=== PATIENT | female | born 1990 | race Caucasian/White ===

== ENCOUNTER 2017-08-24 06:18 | Emergency (ER) | payer OTHER ==
[2017-08-24 06:35] VITALS: BP 134/82; PULSE 70; TEMP 97.6; BMI 23.3
[2017-08-24] MEDS ORDERED: ACETAMINOPHEN 1000 MG/100 ML VIAL (NON FORMULARY) IVPB ONE (06:59)
[2017-08-24] MEDS ORDERED: SODIUM CHLORIDE 1,000 ML IV STA (06:59)
[2017-08-24] MEDS ORDERED: METOCLOPRAMIDE HCL INJECTION 10 MG/2 ML VIAL IVPUSH ONE (07:00)
--- NOTE | 2017-08-24 07:12 | PDOC ---
History of Present Illness - General Chief Complaint: Migraine Headache Stated Complaint: MIGRAINE Time Seen by Provider: 08/24/17 06:48 - History of Present Illness Initial Comments: 08/24/17 08:02 The patient is a 26 year old female with a history of migraines who presents for evaluation of headache and nausea. The patient reports a 1 day history of frontal headache that began gradually and intermittently increases in severity. She states that she took 1 topiramate which she is suppose to take twice a day , but has only been using as needed for her headaches. She reported continued headache this morning prompting her presentation to the ED for evaluation. She states that her symptoms are similar to her normal migraine headaches and are associated with photophobia, phonophobia, and nausea. She otherwise denies fevers, chills, neck stiffness, SOB, chest pain, vomiting, abdominal pain, or changes with urination or bowel movements. Past History - Past Medical History Allergies/Adverse Reactions: Allergies Allergy/AdvReac Type Severity Reaction Status Date / Time No Known Allergies Allergy Verified 08/24/17 06:20 Home Medications: Ambulatory Orders Topiramate [Topamax] 25 mg PO BID 08/24/17 Asthma: No Cancer: No Cardiac Disorders: No COPD: No Diabetes: No HTN: No Psychiatric Problems: Yes (anxiety) Seizures: Yes ("old") Thyroid Disease: No Other medical history: migraines - Suicide/Smoking/Psychosocial Hx Smoking History: Never smoked Have you smoked in the past 12 months: No Hx Alcohol Use: No Drug/Substance Use Hx: No Hx Substance Use Treatment: No Review of Systems - Review of Systems Comments:: 08/24/17 08:06 Constitutional: No fevers, chills, fatigue, malaise HEENT: No Rhinorrhea, nasal congestion, visual changes Cardiovascular: No chest pain, syncope, palpitations, lightheadedness Respiratory: No Cough, SOB, Hemoptysis, Gastrointestinal: Nausea. No Abdominal pain, Vomiting, Constipation, Diarrhea, Melena Genitourinary: No Dysuria, Frequency, Urgency, Hesitancy, Hematuria, Flank pain Musculoskeletal: No Myalgia, arthralgia Skin: No rashes, itching, bruising, pallor Neurologic: Headache, Photophobia, Phonophobia. No Dizziness, Numbness, Weakness , or Tingling Psychiatric: No Hallucinations. No SI or HI *Physical Exam - Vital Signs Last Vital Signs Temp Pulse Resp BP Pulse Ox 97.6 F 70 18 134/82 100 08/24/17 06:20 08/24/17 06:20 08/24/17 06:20 08/24/17 06:20 08/24/17 06:20 - Physical Exam Comments: 08/24/17 08:07 General Appearance: Nourished. No Apparent Distress HEENT: EOMI, AYAH. No Pharyngeal Erythema, Tonsillar Exudate, Tonsillar Erythema Neck: No Cervical Lymphadenopathy Respiratory/Chest: Lungs Clear, Normal Breath Sounds. No Crackles, Rales, Rhonchi, Wheezing Cardiovascular: Regular Rhythm, Regular Rate. No Murmur, Gallops, Rubs Gastrointestinal/Abdominal: Normal Bowel Sounds, Soft. No Guarding, Rebound, Tenderness Musculoskeletal: No CVA Tenderness Extremity: Normal Capillary Refill Integumentary: Normal Color, Dry, Warm Neurologic: screening tech II-XII NML intact, Fully Oriented, Alert, Normal Mood/Affect, Normal Response, Motor Strength 5/5. Normal Finger to Nose and Heel to [place] ED Treatment Course - LABORATORY CBC & Chemistry Diagram: 08/24/17 07:07 08/24/17 07:07 Medical Decision Making - Medical Decision Making 08/24/17 08:07 The patient is a 26 year old female with a history of migraines who presents for evaluation of headache and nausea. Given the patient's similar symptoms to her normal migraines and normal physical exam, it is likely her symptoms are due to her normal migraines. She does not demonstrate any red flag signs on exam here in the ED. We will obtain a cbc, cmp, ua, urine preg to evaluate further and in the meantime treat the patient with iv fluids, iv tylenol, benadryl, and reglan. We will continue to monitor and reassess. 08/24/17 09:48 CBC, cmp, ua, urine preg are unremarkable. The patient reports significant improvement in her symptoms at this time. We are comfortable discharging the patient home with neurology follow up. We discussed the results and the plan with the patient who voiced understanding and is agreeable with the plan. *DC/Admit/Observation/Transfer Diagnosis at time of Disposition: Migraine Qualifiers: Migraine type: unspecified Status migrainosus presence: without status migrainosus Intractability: not intractable Qualified Code(s): G43.909 - Migraine, unspecified, not intractable, without status migrainosus - Discharge Dispostion Disposition: HOME Condition at time of disposition: Good Admit: No - Referrals Referrals: Verenice Florence MD [Primary Care Provider] - Ta Groves MD [Staff Physician] - - Patient Instructions Printed Discharge Instructions: DI for Migraine Additional Instructions: Please return to the ER if you experience concerning or worsening symptoms including worsening headache, vomiting, fevers, or weakness in your extremities. Your lab results were normal here in the ER and your test was negative. Your symptoms are likely due to a migraine headache. Please call to schedule a follow up appointment with our neurologist (Dr. Groves) within 2-3 days to discuss further management of your symptoms. - Post Discharge Activity
--- NOTE | 2017-08-24 07:17 | PDOC ---
Attending Attestation - Resident Resident Name: Jaxson Gamez - ED Attending Attestation I have performed the following: I have examined & evaluated the patient, The case was reviewed & discussed with the resident, I agree w/resident's findings & plan, Exceptions are as noted - HPI HPI: 26 yo F history migraines p/w headache since yesterday. Similar to prior headaches, associated with photophobia, intermittent numbness to limbs. No vomiting, but complains of nausea. She states she took topamax this morning without relief. Her headache was preceded by L side pain. - Physicial Exam PE: GENERAL: Awake, alert, and fully oriented, in no acute distress HEAD: No signs of trauma EYES: PERRLA, EOMI, sclera anicteric, conjunctiva clear ENT: Auricles normal inspection, hearing grossly normal, nares patent, oropharynx clear without exudates. Moist mucosa NECK: Normal ROM, supple, no lymphadenopathy, JVD, or masses LUNGS: Breath sounds equal, clear to auscultation bilaterally. No wheezes, and no crackles HEART: Regular rate and rhythm, normal S1 and S2, no murmurs, rubs or gallops ABDOMEN: Soft, nontender, normoactive bowel sounds. No guarding, no rebound. No masses EXTREMITIES: Normal range of motion, no edema. No clubbing or cyanosis. No cords, erythema, or tenderness NEUROLOGICAL: Cranial nerves II through XII grossly intact. Normal speech, normal gait SKIN: Warm, Dry, normal turgor, no rashes or lesions noted. - Medical Decision Making Counseled patient regarding taking topamax. She was taking it as needed, however , for migraines it is meant to be used consistently to prevent. She has not taken it for months, has not needed it. I counseled her that she may need a change in regimen if her headaches are not as frequent anymore. Counseled her not to use it prn as it is not designed to be used that way. Will send UA and serum B-HCG. If both neg, will DC home.
[2017-08-24 07:31] LABS: BASO % 0.5 % (0-2.0); EOS % 1.5 % (0-4.5); HEMATOCRIT 37.3 % (32.4-45.2); HEMOGLOBIN 12.9 GM/dL (10.7-15.3); MCH 33.8 pg (25.7-33.7); MCHC 34.7 g/dl (32.0-36.0); MEAN CELL VOLUME 97.3 fl (80-96); MEAN PLT VOLUME 8.6 fl (7.5-11.1); PLATELET COUNT 235 K/MM3 (134-434); RBC 3.83 M/mm3 (3.60-5.2); RDW 12.9 % (11.6-15.6); WHITE BLOOD COUNT 6.2 K/mm3 (4.0-10.0)
[2017-08-24 07:51] LABS: ALBUMIN 3.7 g/dl (3.4-5.0); ALK PHOS 54 U/L (45-117); ANION GAP 8 (8-16); BILIRUBIN,TOTAL 0.4 mg/dL (0.2-1.0); BLOOD UREA NITROGEN 21 mg/dL (7-18); CALCIUM 8.4 mg/dL (8.5-10.1); CHLORIDE 107 mmol/L (98-107); CO2 24 mmol/L (21-32); CREATININE 0.7 mg/dL (0.55-1.02); GLUCOSE,RANDOM 84 mg/dL (74-106); SGPT/ALT 12 U/L (12-78); SODIUM 139 mmol/L (136-145); TOT PROT 6.9 g/dl (6.4-8.2)
[2017-08-24 08:18] LABS: POTASSIUM 4.1 mmol/L (3.5-5.1); SGOT/AST 17 U/L (15-37)
[2017-08-24 08:41] LABS: URINE APPEARANCE CLOUDY; URINE BILIRUBIN NEGATIVE (NEGATIVE); URINE BLOOD NEGATIVE (NEGATIVE); URINE COLOR YELLOW; URINE GLUCOSE (UA) NEGATIVE (NEGATIVE); URINE KETONE NEGATIVE (NEGATIVE); URINE LEUK ESTERASE NEGATIVE (NEGATIVE); URINE NITRITE NEGATIVE (NEGATIVE); URINE PROTEIN NEGATIVE (NEGATIVE); URINE UROBILINOGEN NEGATIVE mg/dL (0.2-1.0)
[2017-08-24 08:51] LABS: HCG,QUALITATIVE URINE NEGATIVE
== END 2017-08-24 09:56 | disposition home or self-care (01) ==
LOC: JER 06:18
PROC: 3E0333Z Introduction of Anti-inflammatory into Peripheral Vein, Percutaneous Approach (ICD-10-PCS; principal; 2017-08-24)
PROC: 3E033GC Introduction of Other Therapeutic Substance into Peripheral Vein, Percutaneous Approach (ICD-10-PCS; 2017-08-24)
PROC: 3E033GC Introduction of Other Therapeutic Substance into Peripheral Vein, Percutaneous Approach (ICD-10-PCS; 2017-08-24)
DX: G43.909 Migraine, unspecified, not intractable, without status migrainosus (principal); F41.9 Anxiety disorder, unspecified; Z86.69 Personal history of other diseases of the nervous system and sense organs
CPT/HCPCS: 36415; 80053; 81003; 84703; 85025; 96374; 96375; 99283-25

== ENCOUNTER 2020-12-02 14:20 | Emergency (ER) | payer OTHER ==
[2020-12-02 14:39] VITALS: BP 119/98; PULSE 72; BMI 23.6
== END 2020-12-02 17:14 | disposition home or self-care (01) ==
LOC: JERFT 14:20
DX: Z3A.08 8 weeks gestation of pregnancy (principal)
CPT/HCPCS: 99283-25

== ENCOUNTER 2021-11-11 05:55 | Inpatient (IN) | payer OTHER ==
[2021-11-11] MEDS ORDERED: ELECTROLYTE-148 SOLN 500 ML IV ONE (06:10)
[2021-11-11] MEDS ORDERED: CITRIC ACID/SODIUM CITRATE 30 ML UNIT-DOSE CUP PO ONE (06:10)
[2021-11-11 06:33] VITALS: BMI 32.9
[2021-11-11] MEDS ORDERED: ELECTROLYTE-148 SOLN 1,000 ML IV SCH ×2 (06:40→08:30)
[2021-11-11] MEDS ORDERED: ONDANSETRON 4 MG/2 ML VIAL IVPUSH PRN (07:57)
[2021-11-11] MEDS ORDERED: morphine SULFATE/PF 1 MG/2 ML (2cc Syringe - QUVA) ONE (08:05)
[2021-11-11] MEDS ORDERED: PHENYLEPHRINE HCL 10 MG/1 ML SINGLE DOSE VIAL ONE (08:43)
[2021-11-11] MEDS ORDERED: ceFAZolin SODIUM 1 GM VIAL ONE (08:43)
[2021-11-11] MEDS ORDERED: OXYTOCIN 10 UNITS/ML VIAL ONE (08:45)
[2021-11-11] MEDS ORDERED: ONDANSETRON 4 MG/2 ML VIAL ONE (08:48)
[2021-11-11 09:05] LABS: PHENCYCLIDINE,URINE NEGATIVE (NEGATIVE)
[2021-11-11 09:06] LABS: METHADONE, UR NEGATIVE (NEGATIVE); OPIATES, URI NEGATIVE (NEGATIVE); URINE BARBITURATES NEGATIVE (NEGATIVE); URINE BENZODIAZEPINES NEGATIVE (NEGATIVE)
[2021-11-11 09:09] LABS: COCAINE, UR NEGATIVE (NEGATIVE); URINE AMPHETAMINES NEGATIVE (NEGATIVE)
[2021-11-11] MEDS ORDERED: WITCH HAZEL 50% (TUCKS) 40 PAD/JAR PAD TP PRN (09:17)
[2021-11-11] MEDS ORDERED: METHYLERGONOVINE MALEATE 0.2 MG/1 ML AMP IM PRN (09:17)
[2021-11-11] MEDS ORDERED: ACETAMINOPHEN 325 MG TABLET (FP) PO PRN (09:17)
[2021-11-11 11:48] LABS: SYPHILIS W/ RPR CONF NON-REACTIVE (NONREACTIVE)
[2021-11-11 12:17] LABS: HIV INTERPRETATION NEGATIVE (NEGATIVE)
[2021-11-11] MEDS: FERROUS SO4 325 MG TABLET (FP) PO SCH ×2 (13:06→17:04)
[2021-11-11] MEDS: IBUPROFEN 800 MG/8 ML IJ IVPB PRN ×2 (14:05→22:37)
[2021-11-11] MEDS: OXYTOCIN 20 UNITS in 0.9% NS 20 UNIT/1,000 ML INFUS.BAG IV SCH (17:01)
[2021-11-11] MEDS: PRENATAL VITAMINS W/ FOLIC ACID TABLET (FP) PO SCH (17:03)
[2021-11-11] MEDS: SIMETHICONE 80 MG TAB.CHEW (FP) PO PRN (21:03)
[2021-11-11] MEDS ORDERED: oxyCODONE HCL 5 MG TABLET PO PRN (21:17)
[2021-11-12] MEDS: IBUPROFEN 600 MG TABLET (FP) PO PRN ×4 (06:16→20:00)
[2021-11-12] MEDS: SIMETHICONE 80 MG TAB.CHEW (FP) PO PRN ×4 (06:16→20:02)
[2021-11-12] MEDS: FERROUS SO4 325 MG TABLET (FP) PO SCH ×2 (09:00→18:09)
[2021-11-12] MEDS ORDERED: BISACODYL 10 MG SUPP.RECT RC PRN (09:17)
[2021-11-12] MEDS: PRENATAL VITAMINS W/ FOLIC ACID TABLET (FP) PO SCH (09:20)
[2021-11-12 09:22] LABS: BASO % 0.3 % (0-2.0); EOS % 0.5 % (0-4.5); HEMATOCRIT 28.2 % (32.4-45.2); HEMOGLOBIN 9.6 GM/dL (10.7-15.3); LYMPH % 11.1 % (8-40); MEAN CELL VOLUME 94.3 fl (80-96); MEAN PLT VOLUME 8.3 fl (7.5-11.1); MONO % 8.8 % (3.8-10.2); NEUT % 79.3 % (42.8-82.8); PLATELET COUNT 253 10^3/uL (134-434); RBC 2.99 M/mm3 (3.60-5.2); RDW 13.6 % (11.6-15.6); WHITE BLOOD COUNT 10.3 K/mm3 (4.0-10.0)
[2021-11-12] MEDS ORDERED: DIPHTH,PERTUSS(ACELL),TET 0.5 ML DISP.SYRIN IM ONE (10:00)
[2021-11-13] MEDS: IBUPROFEN 600 MG TABLET (FP) PO PRN ×4 (00:35→19:58)
[2021-11-13] MEDS: SIMETHICONE 80 MG TAB.CHEW (FP) PO PRN ×4 (00:35→19:58)
[2021-11-13] MEDS: FERROUS SO4 325 MG TABLET (FP) PO SCH ×2 (08:56→18:30)
[2021-11-13] MEDS: PRENATAL VITAMINS W/ FOLIC ACID TABLET (FP) PO SCH (09:00)
[2021-11-14] MEDS: SIMETHICONE 80 MG TAB.CHEW (FP) PO PRN (00:52)
[2021-11-14] MEDS: IBUPROFEN 600 MG TABLET (FP) PO PRN ×2 (00:52→08:04)
[2021-11-14] MEDS: OXYTOCIN 20 UNITS in 0.9% NS 20 UNIT/1,000 ML INFUS.BAG IV SCH (07:52)
[2021-11-14] MEDS: PRENATAL VITAMINS W/ FOLIC ACID TABLET (FP) PO SCH ×2 (08:04→09:03)
[2021-11-14] MEDS: FERROUS SO4 325 MG TABLET (FP) PO SCH (08:04)
[2021-11-14 09:04] LABS: BASO % 0.4 % (0-2.0); EOS % 2.2 % (0-4.5); HEMATOCRIT 27.9 % (32.4-45.2); HEMOGLOBIN 9.5 GM/dL (10.7-15.3); LYMPH % 20.7 % (8-40); MCH 32.2 pg (25.7-33.7); MCHC 33.9 g/dl (32.0-36.0); MEAN CELL VOLUME 94.9 fl (80-96); MEAN PLT VOLUME 8.2 fl (7.5-11.1); MONO % 10.2 % (3.8-10.2); NEUT % 66.5 % (42.8-82.8); PLATELET COUNT 276 10^3/uL (134-434); RBC 2.94 M/mm3 (3.60-5.2); RDW 13.8 % (11.6-15.6); WHITE BLOOD COUNT 7.2 K/mm3 (4.0-10.0)
[2021-11-14 09:12] VITALS: BP 128/79; PULSE 75; TEMP 98.8
== END 2021-11-14 11:15 | disposition home or self-care (01) | DRG 540 ==
LOC: JLDR 05:55 → J3W 10:50
PROVIDERS: ADMIT Obstetrics & Gynecology; ATTEND Obstetrics & Gynecology
PROC: 10D00Z1 Extraction of Products of Conception, Low, Open Approach (ICD-10-PCS; principal; 2021-11-11)
DX: O34.211 Maternal care for low transverse scar from previous cesarean delivery (principal); O36.63X0 Maternal care for excessive fetal growth, third trimester, not applicable or unspecified; O99.214 Obesity complicating childbirth; E66.9 Obesity, unspecified; Z3A.39 39 weeks gestation of pregnancy; Z37.0 Single live birth
CPT/HCPCS: 36415; 80053; 80307; 85025; 85610; 86780; 86850; 86900; 86901; 87340; 87389; 88307-TC; 90715; C9803-CS; U0003; U0005

== ENCOUNTER 2023-12-06 14:45 | Emergency (ER) | payer OTHER ==
[2023-12-06 14:58] VITALS: BP 108/64; PULSE 82; RESP 18; TEMP 98; BMI 26.6
[2023-12-06] MEDS ORDERED: ACETAMINOPHEN 500 MG TABLET (FP) ONE (16:16)
[2023-12-06] MEDS ORDERED: IBUPROFEN 400 MG TABLET (FP) PO ONE (16:16)
[2023-12-06] MEDS: IBUPROFEN 400 MG TABLET (FP) PO ONE (16:19)
[2023-12-06] MEDS: ACETAMINOPHEN 500 MG TABLET (FP) PO ONE (16:19)
== END 2023-12-06 17:25 | disposition home or self-care (01) ==
LOC: JERFT 14:45
DX: S53.402A Unspecified sprain of left elbow, initial encounter (principal); W01.0XXA Fall on same level from slipping, tripping and stumbling without subsequent striking against object, initial encounter; Y99.0 Civilian activity done for income or pay
CPT/HCPCS: 73070-TC-LT-FY; 99283-25